=== PATIENT | female | born 1990 | race Caucasian/White ===

== ENCOUNTER 2024-10-17 10:05 | Emergency (ER) | payer MEDICAID, SELFPAY ==
[2024-10-17 10:13] VITALS: BP 120/80; PULSE 95; RESP 16; TEMP 36.9; O2SAT 98
--- NOTE | 2024-10-17 10:36 | ED.GENADUL_ITS ---
Discharge Plan Disposition Patient Disposition: Home Condition: Stable Discharge Details Clinical Impression: Methadone maintenance therapy patient Primary Care Provider: None,None ED Provider: Kiera Wright Home Meds and New Rx's Prescriptions: No Action methadone 5 mg/5 mL solution 90 mg PO DAILY Discharge Instructions Instructions: Medication Safety, Adult Additional Instructions: You were seen in the emergency department today for a dose of your methadone. In our department you had a full evaluation and we discussed your case with both the [place] facility as well as [facility] here in [place], where you plan to transfer your care. To do so, you need to call the [place] office at [phone] and have them send a transfer form to the [facility] office to reestablish as you are no longer eligible for gas dosing due to absenteeism. You should go to the [place] office after your discharge to ensure that everything occurred successfully. This is located at [address] in [facility], just down the [place] from the hospital. They are open until 11:30am. You received a 90 mg dose of methadone today (10/17/2024). Please follow-up with your primary care provider in the next few days to discuss this visit and any symptoms that change, worsen, or persist. Thank you for allowing us to be part of your care. HPI General Mode of arrival: ambulatory . Date/Time Provider Initiated Documentation: 10/17/24 10:09 . Limitations to Documentation: no limitations . Information obtained by: patient, RN/MD and old records reviewed . HPI Narrative: HPI: This is a 34-year-old female patient with a history of opioid use disorder on methadone maintenance therapy, presenting for a missed dose. She typically gets her doses down in [place], but is moving appear to be away from triggering situations. She states that she was getting gas doses at the [facility] office, but missed several days due to car troubles. She did get a dose yesterday in [place], and presents here today seeking assistance in dosing. The patient reports that she has a plan to get her car fixed and was able to get a ride here today. She is otherwise in her normal state of health and denies acute withdrawal symptoms, recent illness or injury. Exam: Gen: Awake and alert, in no apparent distress HEENT: Non-icteric sclera Neck: Supple Lungs: No apparent respiratory distress, normal respiratory effort. CV: Appears well perfused Abdomen: Non-distended MSK: Moves 4 extremities without apparent limitation in ROM Skin: Visualized skin without rashes, cyanosis. Neuro: Normal Gait, no obvious focal deficits or facial asymmetry. Speaks in full, clear sentences. Psych: Appropriate for situation. MDM: This is a 34-year-old female patient presenting for evaluation of a methadone dose. Differential includes but is not limited to typical medication maintenance therapy needs, considered intoxication or withdrawal syndromes with the patient is reassuringly without physical exam or vital sign evidence of same. We did reach out to the [place] office as well as the [place] office, and confirmed that the patient's dose is 90 mg. Unfortunately, given the absenteeism she will need to have was 11 on send transfer paperwork to the [place] office again if she wants to initiate care there. I did senior genetic counselor the patient to call the office and have that done as well as reminded her that she can present in person to facilitate this transfer as needed. We did contact [facility] to confirm the receipt of a single dose yesterday. ED Course: The patient received her dose of methadone and reports no other social needs including safe housing, food or drink, etc. At this time, the patient has had a full medical evaluation and is safe for discharge to home. They are hemodynamically stable, ambulatory, and tolerating PO. They are understanding of the follow-up plan and return precautions. They left our facility without incident. Kiera Wright MD Related Data Home Medications ?Medication ?Instructions ?Recorded ?Confirmed methadone 5 mg/5 mL oral solution 90 mg PO DAILY 10/17/24 10/17/24 Allergies Allergy/AdvReac Type Severity Reaction Status Date / Time No Known Allergies Allergy Unverified 10/17/24 10:16 General Stated Complaint: RX Refill LEN: 4 Course Vital Signs Vital signs: Vital Signs Temperature 36.9 C 10/17/24 10:13 Pulse 95 H 10/17/24 10:13 Respiratory Rate 16 10/17/24 10:13 Blood Pressure 120/80 10/17/24 10:13 Pulse Oximetry 98 10/17/24 10:13 Temperature 36.9 C 10/17/24 10:13 Pulse 95 H 10/17/24 10:13 Respiratory Rate 16 10/17/24 10:13 Blood Pressure 120/80 10/17/24 10:13 Pulse Oximetry 98 10/17/24 10:13 Medical Decision Making Quality:SDOH Health Related Social Needs: No Data to Display PFSH All Active Problems (Updated 10/17/24 @ 10:39 by Kiera Wright MD) Methadone maintenance therapy patient (Acute) Social History (System 04/21/18 @ 13:01 by Shirley Wray) Smoking/Tobacco Use Status: Current-Occasional Tobacco Type: cigarettes Smoking risk assessment performed?: Yes Alcohol Intake: former Drug use: Current Sobriety Substance use type: former substance user and marijuana Do you feel safe at home: Yes Do you feel safe in your relationship?: Yes
[2024-10-17] MEDS: Methadone Liquid 10 MG/ML 90 MG PO (10:52)
[2024-10-17 11:05] VITALS: BP 120/88; PULSE 95; RESP 16; TEMP 36.9; O2SAT 98
== END 2024-10-17 11:05 | disposition home or self-care (01) ==
PROVIDERS: Emergency Provider Emergency Medicine
DX: F11.20 Opioid dependence, uncomplicated (principal); Z91.138 Patient's unintentional underdosing of medication regimen for other reason
CPT/HCPCS: 99283

== ENCOUNTER 2024-10-18 09:54 | Emergency (ER) | payer MEDICAID, SELFPAY ==
[2024-10-18 10:09] VITALS: BP 129/75; PULSE 73; RESP 20; TEMP 36.8; O2SAT 97
--- NOTE | 2024-10-18 10:33 | ED.GENADUL_ITS ---
Discharge Plan Disposition Patient Disposition: Home Condition: Stable Discharge Details Clinical Impression: Methadone maintenance therapy patient Primary Care Provider: None,None ED Provider: Sam Gonsalves Home Meds and New Rx's Prescriptions: Continued methadone 5 mg/5 mL solution 90 mg PO DAILY Discharge Instructions Instructions: Methadone Additional Instructions: You were seen in the emergency department for your missed dose of methadone treatment, you state you have arranged for the [facility] to take over your treatment, please follow-up with them tomorrow please return to the emergency department for any emergent concerns Referrals: [facility] [Outside] Discharge Data Discharge Date/Time-TO BE ENTERED AT DEPARTURE: 10/18/24 10:54 HPI General Date/Time Provider Initiated Documentation: 10/18/24 10:15 . HPI Narrative: 34 year-old female presents to ED today by POV/ambulating with a chief complaint of request for methadone dose- in process of transferring care from [place] to [facility]. Quality described as no symptoms of withdrawal, no radiation to nausea, vomiting, dizziness, fever, sweats/chills. Severity is described as mild. Palliating factors include nothing specific. Provoking fac tors include nothing specific. Events leading up to the incident/Associated Symptoms: Patient didn't feel her car could make it to her appointment in [place]. Patient not anticoagulated. Related Data Home Medications ?Medication ?Instructions ?Recorded ?Confirmed methadone 5 mg/5 mL oral solution 90 mg PO DAILY 10/17/24 10/18/24 Allergies Allergy/AdvReac Type Severity Reaction Status Date / Time No Known Allergies Allergy Unverified 10/18/24 10:13 General Stated Complaint: Recheck LEN: 4 Review of Systems All systems reviewed & are unremarkable except as noted in HPI and below Exam Narrative Exam Narrative: GENERAL APPEARANCE: Well-nourished, non-toxic, awake and alert, atraumatic, no acute distress. SKIN: Warm, pink, dry, intact, without rashes/lesions/ulcerations. HEAD: Normocephalic, atraumatic, normal hair distribution for gender/age. EYES: Normal conjunctiva, no exudates on lids/lashes. ENT: Nares patent, no circumoral cyanosis, no facial swelling NECK: Supple, trachea midline, painless cervical ROM. LUNGS/CHEST: Non-labored respirations, normal A/P diameter, symmetrical expansion, no chest wall deformity HEART (CV/PV): No peripheral edema, no JVD. ABDOMEN: Soft, non-distended, no guarding. MSK: Normal ROM, no swelling/deformity to bilateral UEs or LEs, moving all extremities without weakness, no cyanosis, spine midline without tenderness, normal curvature. NEURO: Mental Status AAOx4 - alert to person, place, time, events No facial droop, no forehead involvement. Motor: No focal weakness - strength 5/5 in bilateral UEs and LEs, proximal and distal, symmetric. Sensory: sensation intact to light touch globally. Gait normal: patient ambulated without ataxia into ED room. PSYCH: euthymic, cooperative, pleasant, appropriate speech Course Vital Signs Vital signs: Vital Signs Temperature 36.8 C 10/18/24 10:09 Pulse 73 10/18/24 10:09 Respiratory Rate 20 10/18/24 10:09 Blood Pressure 129/75 10/18/24 10:09 Pulse Oximetry 97 10/18/24 10:09 Temperature 36.8 C 10/18/24 10:09 Pulse 73 10/18/24 10:09 Respiratory Rate 20 10/18/24 10:09 Blood Pressure 129/75 10/18/24 10:09 Blood Pressure Position Sitting 10/18/24 10:09 Pulse Oximetry 97 10/18/24 10:09 Oxygen Delivery Method Room Air 10/18/24 10:09 Oxygen Flow Rate 0 10/18/24 10:09 Medical Decision Making This dictation utilizes [id number] dictation software and may contain unedited grammatical errors. 34 year-old female presents to ED today by POV/ambulating with a chief complaint of request for methadone dose- in process of transferring care from [place] to [facility]. Quality described as no symptoms of withdrawal, no radiation to nausea, vomiting, dizziness, fever, sweats/chills. Severity is described as mild. Palliating factors include nothing specific. Provoking factors include nothing specific. Events leading up to the incident/Associated Symptoms: Patient didn't feel her car could make it to her appointment in [place]. Patients' medical history: Noncontributory. Family and social history: Denies IVDU, denies EtOH use. Pertinent exam findings / vital signs include benign cardiopulmonary status, neuro intact. Differential / pathologies of concern include request for methadone treatment. Diagnostic studies of: -None. Interventions of: -Gave home dose 90 mg p.o. methadone. ED Course/Assessment/Plan: 34-year-old female presents with request for her daily maintenance dose of methadone, states her car cannot make it to [place], she had been to [facility] yesterday to arrange for transfer of her care to [facility]. I did provide her home dose and encouraged any return for emergent concerns. Findings not consistent with emergent pathology, acute medical issue. Disposition of methadone maintenance therapy patient. Patient verbalized understanding of the plan and return to ED criteria and engaged in shared decision making. Medical Records Medical records reviewed: Yes I reviewed the patient's medical records. Quality:SDOH Health Related Social Needs: No Data to Display PFSH All Active Problems (Updated 10/18/24 @ 10:41 by CRYSTAL Ratliff) Methadone maintenance therapy patient (Acute) Social History (System 04/21/18 @ 13:01 by Shirley Wray) Smoking/Tobacco Use Status: Current-Occasional Tobacco Type: cigarettes Smoking risk assessment performed?: Yes Alcohol Intake: former Drug use: Current Sobriety Substance use type: former substance user and marijuana Do you feel safe at home: Yes Do you feel safe in your relationship?: Yes
[2024-10-18] MEDS: Methadone Liquid 10 MG/ML 90 MG PO (10:56)
== END 2024-10-18 10:54 | disposition home or self-care (01) ==
PROVIDERS: Emergency Provider Physician Assistant
DX: F11.20 Opioid dependence, uncomplicated (principal); F17.210 Nicotine dependence, cigarettes, uncomplicated
CPT/HCPCS: 99283